=== PATIENT | male | born 1975 | race African-American/Black ===

== ENCOUNTER 2017-01-06 09:29 | Inpatient (IN) ==
[2017-01-06] MEDS ORDERED: SODIUM CHLORIDE 0.9% 1,000 ML IV STA (09:50)
[2017-01-06] MEDS ORDERED: LORazepam 2 MG/1 ML VIAL IV STA (10:01)
[2017-01-06] MEDS ORDERED: LORazepam 2 MG/1 ML VIAL ONE (10:02)
[2017-01-06 10:44] LABS: Basophils % 0.1 % (0.0-0.8); Eosinophils % 0.1 % (0.00-10.9); Hematocrit 29.3 VOL% (42.0-52.0); Immature Granulocytes % 0.7 %; Immature Granulocytes Absolute 0.07 #; Lymphocytes # 0.7 10*3/uL (1.4-4.0); Lymphocytes % 7.1 % (21.2-54.2); Mean Corpuscular HGB Conc 38.2 GM/DL (32-36); Mean Corpuscular Hemoglobin 35 PG (27-34); Mean Corpuscular Volume 92.1 FL (87-102); Mean Platelet Volume 12.5 FL (9.6-12.0); Monocytes % 9.5 % (1.7-12.7); Neutrophils # 8.4 10*3/uL (1.4-7.4); Neutrophils % 82.5 % (38.7-73.9); Platelet Count 118 T/CUMM (130-400); Red Blood Count 3.18 MC/CUMM (3.8-5.5); White Blood Count 10.1 T/CUMM (4-12)
[2017-01-06 10:46] LABS: Hemoglobin 11.2 GM/DL (14.0-18.0)
[2017-01-06 10:54] LABS: Albumin 2.8 G/DL (3.4-5.0); Bilirubin,Total 3.6 MG/DL (0.2-1.0); Osmolality,Calculated 231.2 MOS/KG (273-304); Potassium 3.2 MMOL/L (3.5-5.1); Total Protein 7.3 G/DL (6.4-8.3)
[2017-01-06 10:58] LABS: Calcium 7.7 MG/DL (8.5-10.1)
[2017-01-06] MEDS ORDERED: hydrALAZINE 20 MG/1 ML VIAL IV STA (10:58)
[2017-01-06] MEDS ORDERED: ONDANSETRON 4 MG/2 ML VIAL IV STA (10:59)
[2017-01-06] MEDS ORDERED: hydrALAZINE 20 MG/1 ML VIAL ONE (11:00)
[2017-01-06] MEDS ORDERED: ONDANSETRON 4 MG/2 ML VIAL ONE (11:00)
[2017-01-06 11:04] LABS: Apearance,Urine CLEAR (Clear); Bilirubin,Urine Negative (Negative); Blood, Urine Negative (Negative); Glucose,Urine (UA) >=500 mg/dL (Negative); Ketones,Urine 5 mg/dL (Negative); Nitrite,Urine Negative (Negative); Protein,Urine Negative; RBC,Urine <1 /HPF (0-4); Urine Color Yellow (Yellow); Urine Specific Gravity 1.001 (1.001-1.035); Urine Urobilinogen < 2.0 EU/DL (0.2-1.0); WBC,Urine 1 /HPF (0-6)
[2017-01-06 11:10] LABS: Barbiturates Screen,Urine Negative (Negative); Benzodiazepines Screen,Urine Negative (Negative); Cannabinoid Screen,Urine Negative (Negative); Opiate Screen,Urine Negative (Negative); Phencyclidine Screen,Urine Negative (Negative)
[2017-01-06] MEDS ORDERED: SODIUM CHLORIDE 0.9% 1,000 ML IV SCH ×2 (12:00→17:00)
[2017-01-06] MEDS ORDERED: THIAMINE INJ 100 MG, FOLIC ACID INJ 1 MG, MULTIVITAMIN INJ 10 ML in SODIUM CHLORIDE 0.9... IV SCH (12:00)
[2017-01-06] MEDS ORDERED: LORazepam 2 MG/1 ML VIAL IV PRN ×2 (12:00→12:02)
[2017-01-06 13:35] LABS: Calcium 7.6 MG/DL (8.5-10.1); Magnesium 1.2 MG/DL (1.8-2.4); Osmolality,Calculated 228.2 MOS/KG (273-304); Potassium 3.2 MMOL/L (3.5-5.1)
[2017-01-06] MEDS ORDERED: 1: THIAMINE INJ 100 MG, FOLIC ACID INJ 1 MG, MULTIVITAMIN INJ 10 ML in SODIUM CHLORIDE 0 IV SCH (14:00)
[2017-01-06] MEDS ORDERED: MAGNESIUM SULF RIDER 4 GM in PREMIX 1 EACH IV PRN (16:19)
[2017-01-06] MEDS ORDERED: MAGNESIUM SULF RIDER 2 GM in PREMIX 1 EACH IV PRN (16:19)
[2017-01-06] MEDS ORDERED: SODIUM CHLOR 0.9% KCL 40 MEQ 40 MEQ/1,000 ML BAG IV SCH (16:30)
[2017-01-06] MEDS: POTASSIUM CHLORIDE RIDER 10 MEQ in PREMIX 1 EACH IV PRN ×4 (16:37→19:22)
[2017-01-06] MEDS: 1: THIAMINE INJ 100 MG, FOLIC ACID INJ 1 MG, MULTIVITAMIN INJ 10 ML in SODIUM CHLORIDE 0 IV SCH (18:53)
[2017-01-06 19:42] LABS: Albumin 2.7 G/DL (3.4-5.0); Calcium 8.3 MG/DL (8.5-10.1); Osmolality,Calculated 239.1 MOS/KG (273-304); Phosphorous 2.6 MG/DL (2.5-4.9); Potassium 3.8 MMOL/L (3.5-5.1)
[2017-01-06] MEDS: levETIRAcetam INJ 500 MG in SODIUM CHLORIDE 0.9% 50 ML IV SCH (19:51)
[2017-01-07 00:09] LABS: Albumin 2.8 G/DL (3.4-5.0); Calcium 8.3 MG/DL (8.5-10.1); Osmolality,Calculated 248.5 MOS/KG (273-304); Phosphorous 2.6 MG/DL (2.5-4.9); Potassium 3.8 MMOL/L (3.5-5.1)
[2017-01-07] MEDS: levETIRAcetam INJ 500 MG in SODIUM CHLORIDE 0.9% 50 ML IV SCH ×2 (03:26→09:34)
[2017-01-07] MEDS: 1: THIAMINE INJ 100 MG, FOLIC ACID INJ 1 MG, MULTIVITAMIN INJ 10 ML in SODIUM CHLORIDE 0 IV SCH (03:42)
[2017-01-07 04:31] LABS: Calcium 8.1 MG/DL (8.5-10.1); Magnesium 2.4 MG/DL (1.8-2.4); Osmolality,Calculated 254.9 MOS/KG (273-304); Potassium 3.8 MMOL/L (3.5-5.1)
[2017-01-07 05:09] LABS: Albumin 2.7 G/DL (3.4-5.0); Calcium 8.4 MG/DL (8.5-10.1); Osmolality,Calculated 253.1 MOS/KG (273-304); Phosphorous 2.6 MG/DL (2.5-4.9); Potassium 3.8 MMOL/L (3.5-5.1)
[2017-01-07] MEDS: POTASSIUM CHLORIDE RIDER 10 MEQ in PREMIX 1 EACH IV PRN ×2 (06:18→07:46)
[2017-01-07 08:38] LABS: Albumin 2.6 G/DL (3.4-5.0); Calcium 8.3 MG/DL (8.5-10.1); Osmolality,Calculated 255.8 MOS/KG (273-304); Phosphorous 2.6 MG/DL (2.5-4.9); Potassium 4.1 MMOL/L (3.5-5.1)
[2017-01-07] MEDS ORDERED: DEXTROSE 5% 1,000 ML IV SCH (09:30)
[2017-01-07] MEDS ORDERED: DESMOPRESSIN 10 MCG NASAL SPRAY 5 ML BOTTLE ONE NARE SCH (09:30)
[2017-01-07] MEDS ORDERED: cloNIDine 0.1 MG TABLET PO PRN (09:41)
[2017-01-07] MEDS ORDERED: cloNIDine 0.1 MG TABLET PO ONE (09:41)
[2017-01-07] MEDS: levETIRAcetam 500 MG TABLET PO SCH (21:14)
[2017-01-08] MEDS: levETIRAcetam 500 MG TABLET PO SCH ×2 (09:12→20:41)
[2017-01-08] MEDS: LEVOFLOXACIN INJ 500 MG in PREMIX 1 EACH IV SCH (09:14)
[2017-01-08] MEDS ORDERED: LISINOPRIL 20 MG TABLET PO SCH (09:30)
[2017-01-08] MEDS ORDERED: amLODIPine 10 MG TABLET PO SCH (09:30)
[2017-01-08] MEDS ORDERED: LISINOPRIL 5 MG TABLET PO SCH (10:10)
[2017-01-08] MEDS: cloNIDine 0.1 MG TABLET PO SCH ×2 (15:15→20:41)
[2017-01-09 05:13] LABS: Basophils # 0.1 10*3/uL (0.0-0.2); Basophils % 1.2 % (0.0-0.8); Eosinophils # 0.2 10*3/uL (0.0-0.87); Hematocrit 26.8 VOL% (42.0-52.0); Hemoglobin 9.8 GM/DL (14.0-18.0); Immature Granulocytes % 0.2 %; Immature Granulocytes Absolute 0.01 #; Lymphocytes # 1.2 10*3/uL (1.4-4.0); Lymphocytes % 18.5 % (21.2-54.2); Mean Corpuscular HGB Conc 36.6 GM/DL (32-36); Mean Corpuscular Hemoglobin 36 PG (27-34); Mean Corpuscular Volume 97.1 FL (87-102); Monocytes # 0.9 10*3/uL (0.11-0.8); Monocytes % 13.8 % (1.7-12.7); NRBC # 0.02 10*3/uL; Neutrophils # 4.2 10*3/uL (1.4-7.4); Neutrophils % 63.3 % (38.7-73.9); Platelet Count 206 T/CUMM (130-400); Red Blood Count 2.76 MC/CUMM (3.8-5.5); Red Cell Distribution Width 13.2 % (9.3-17.3); White Blood Count 6.7 T/CUMM (4-12)
[2017-01-09 05:42] LABS: Calcium 8.6 MG/DL (8.5-10.1); Osmolality,Calculated 258.7 MOS/KG (273-304)
[2017-01-09] MEDS: levETIRAcetam 500 MG TABLET PO SCH ×2 (08:54→20:21)
[2017-01-09] MEDS: amLODIPine 5 MG TABLET PO SCH (08:54)
[2017-01-09] MEDS: cloNIDine 0.1 MG TABLET PO SCH ×3 (08:55→20:21)
[2017-01-09] MEDS: LEVOFLOXACIN INJ 500 MG in PREMIX 1 EACH IV SCH (08:55)
[2017-01-10] MEDS ORDERED: cloNIDine 0.1 MG TABLET PO SCH (09:00)
[2017-01-10] MEDS ORDERED: LISINOPRIL 10 MG TABLET PO SCH (09:00)
[2017-01-10] MEDS: levETIRAcetam 500 MG TABLET PO SCH (09:28)
[2017-01-10] MEDS: amLODIPine 5 MG TABLET PO SCH (09:38)
[2017-01-10] MEDS: LEVOFLOXACIN INJ 500 MG in PREMIX 1 EACH IV SCH (09:39)
[2017-01-10 16:00] VITALS: BP 147/96
== END 2017-01-10 17:40 | disposition home or self-care (01) | DRG 640 ==
LOC: EDBD 09:29 → EDUNIT# 09:29 → N.ED 09:29 → N.EDINP 11:06 → N.CC 14:54 → N.4E 01-09 15:31
PROVIDERS: ADMIT Internal Medicine; ATTEND Internal Medicine